=== PATIENT | male | born 1960 | race Caucasian/White ===

== ENCOUNTER 2018-11-10 08:05 | Day surgery (SDC) | payer MEDICAID ==
[2018-11-08 16:34] LABS: BASOPHILS # (AUTO) 0.1 X10'3 (0-0.2); BASOPHILS % (AUTO) 1.1 % (0-1); EOSINOPHILS # (AUTO) 0.2 X10'3 (0-0.9); EOSINOPHILS % (AUTO) 2.6 % (0-6); LYMPHOCYTES # (AUTO) 1.6 X10'3 (1.1-4.8); LYMPHOCYTES % (AUTO) 18.8 % (21-51); MEAN CORPUSCULAR HEMOGLOBIN 32.1 PG (27.0-31.0); MEAN CORPUSCULAR VOLUME 91.9 FL (78-98); MEAN PLATELET VOLUME 8.8 FL (7.4-10.4); MONOCYTES # (AUTO) 0.5 X10'3 (0-0.9); MONOCYTES % (AUTO) 5.3 % (2-12); NEUTROPHILS # (AUTO) 6.2 X10'3 (1.8-7.7); NEUTROPHILS % (AUTO) 72.2 % (42-75); PRE OP HEMATOCRIT 50.8 % (42.0-52.0); PRE OP HEMOGLOBIN 17.8 g/dL (14.0-17.9); PRE OP PLATELET COUNT 208 X10'3 (140-440); RED BLOOD COUNT 5.53 X10'6 (4.70-6.10); RED CELL DISTRIBUTION WIDTH 13.5 % (11.5-14.5)
[2018-11-08 16:44] LABS: PRE OP PROTIME 10.7 SECONDS (9.0-12.0)
[2018-11-08 16:55] LABS: ALBUMIN 4.2 G/DL (3.4-5.0); ALBUMIN/GLOBULIN RATIO 1.4 (1.1-1.5); ALKALINE PHOSPHATASE 62 IU/L (46-116); BLOOD UREA NITROGEN 15 MG/DL (7-18); BUN/CREATININE RATIO 14.9 (5.4-32.0); CALCIUM 8.9 MG/DL (8.5-10.1); CHLORIDE 107 MMOL/L (99-107); CREATININE 1.01 MG/DL (0.60-1.10); PRE OP ALT 48 U/L (30-65); PRE OP ANION GAP 8 (8-16); PRE OP AST 20 U/L (10-37); PRE OP BILIRUB, TOTAL 0.4 MG/DL (0.0-1.0); PRE OP GLUCOSE 94 MG/DL (70-104); PRE OP POTASSIUM 4.1 MMOL/L (3.4-5.1); PRE OP SODIUM 146 MMOL/L (135-145); TOTAL CARBON DIOXIDE 30.8 MMOL/L (24-32); TOTAL PROTEIN 7.2 G/DL (6.4-8.2); eGFR 76 ML/MIN
[~2018-11-10] VITALS: Ht 193 cm; Wt 132.0 kg
[~2018-11-10 08:05] MED LIST: ALBU8.5H8 INH; APIX2.5T PO; BUPIVAcaine/PF 2.5mg/ml (0.25%) 10ml vial ONE; LIDOcaine 0.5% (5mg/ml) 50ml vial ONE; LISI-604 PO
[2018-11-10] MEDS ORDERED: ringers solution, lacted 1,000 ML IV SCH ×2 (08:34→09:00)
[2018-11-10] MEDS ORDERED: labetalol 20mg/4ml (5mg/ml) syringe IV PRN (08:35)
[2018-11-10] MEDS ORDERED: morphine 4 MG/ML inj SYRINge IV PRN ×2 (08:35)
[2018-11-10] MEDS ORDERED: ondansetron/PF 4mg/2ml inj IV PRN (08:35)
[2018-11-10] MEDS ORDERED: hydrALAZINE 20mg/ml inj. IV PRN (08:35)
[2018-11-10] MEDS ORDERED: fentaNYL/PF 50MCG/1 ML 2ML syringe IV PRN ×2 (08:35)
[2018-11-10] MEDS ORDERED: cefazolin/dext.iso 2gm/50ml 50 ML IV ONE (09:00)
[2018-11-10] MEDS ORDERED: famotidine 20mg tablet PO ONE (09:00)
[2018-11-10] MEDS ORDERED: albuterol 2.5 MG/3 ML nebule NEB ONE (09:00)
[2018-11-10] MEDS ORDERED: MIDAZolam 5mg/5ml vial ONE (11:18)
[2018-11-10] MEDS ORDERED: fentaNYL/PF 50MCG/1 ML 2ML syringe ONE (11:18)
[2018-11-10 11:31] VITALS: BP 139/89
[2018-11-10 11:34] VITALS: BP 139/89
[2018-11-10] MEDS ORDERED: ketorolac trometh. 30mg/ml inj. ONE (11:46)
[2018-11-10 11:58] VITALS: BP 182/116
--- NOTE | 2018-11-10 11:58 | NUR ---
Received from OR via , accompanied by Anesthesiologist DR YOUNG and report given by Anesthesiolgist. AWAKENS TO VOICE. VITALS STABLE. DRESSING DI. RAMSEY PAIN.
[2018-11-10 12:08] VITALS: BP 147/85
[2018-11-10 12:18] VITALS: BP 122/80
[2018-11-10 12:28] VITALS: BP 136/88
--- NOTE | 2018-11-10 12:38 | NUR ---
AWAKE AND ORIENTED. VITALS STABLE. DRESSING DI. RAMSEY PAIN. HOME WITH HIS AT THIS TIME.
== END 2018-11-10 12:38 | disposition home or self-care (01) ==
LOC: PAS 08:05
PROVIDERS: ATTEND Orthopaedic Surgery Hand Surgery
DX: G56.21 Lesion of ulnar nerve, right upper limb (principal); F17.290 Nicotine dependence, other tobacco product, uncomplicated; J45.909 Unspecified asthma, uncomplicated; I10 Essential (primary) hypertension; E66.9 Obesity, unspecified; Z68.36 Body mass index [BMI] 36.0-36.9, adult; F15.90 Other stimulant use, unspecified, uncomplicated; Z98.890 Other specified postprocedural states; Z79.899 Other long term (current) drug therapy; Z79.01 Long term (current) use of anticoagulants; Z86.14 Personal history of Methicillin resistant Staphylococcus aureus infection
CPT/HCPCS: 36415; 64718; 80053; 82948; 85025; 85610; 85730; 93005; A6222; J1885; J2001; J2250; J3010; J3490; A4215; A4618; A6449; J7120